=== PATIENT | male | born 1960 | race Caucasian/White ===

== ENCOUNTER 2017-11-07 09:10 | Day surgery (SDC) | payer OTHER ==
[2017-11-07] MEDS: BUPIVACAINE 0.5% 30 ML VIAL INJ
[2017-11-07] MEDS: LIDOCAINE 1%/EPI 30 ML INJ INJ
[2017-11-07 10:33] LABS: ADD MAN DIFF? NO
[2017-11-07 10:38] LABS: BASOPHIL # 0.1 10^3/ul (0.0-0.1); BASOPHILS % 1.1 % (0.0-2.0); EOSINOPHILS # 0.3 10^3/ul (0.0-0.5); EOSINOPHILS % 3.2 % (0.0-7.0); HEMATOCRIT 48.4 % (42.0-52.0); HEMOGLOBIN 16.8 g/dl (14.0-18.0); LYMPHOCYTES # 1.8 10^3/ul (0.8-2.9); LYMPHOCYTES % 22.7 % (15.0-51.0); MEAN CORPUSCULAR HEMOGLOBIN 29.9 pg (29.0-33.0); MEAN CORPUSCULAR HGB CONC 34.7 g/dl (32.0-37.0); MEAN CORPUSCULAR VOLUME 86.1 fl (82.0-101.0); MEAN PLATELET VOLUME 10.5 fl (7.4-10.4); MONOCYTE # 0.7 10^3/ul (0.3-0.9); MONOCYTES % 8.8 % (0.0-11.0); NEUTROPHIL # 5.1 10^3/ul (1.6-7.5); NEUTROPHILS % 63.2 % (39.0-77.0); PLATELET COUNT 272 10^3/UL (140-415); RED BLOOD COUNT 5.62 10^6/ul (4.70-6.10); RED CELL DISTRIBUTION WIDTH 12.1 % (11.5-14.5)
[2017-11-07 10:38] LABS: WHITE BLOOD COUNT 8.1 10^3/ul (4.8-10.8)
[2017-11-07] MEDS: SOD CHLORIDE 0.9% 1,000 ML IV (10:41)
[2017-11-07 10:54] LABS: INR 0.99; PROTIME 13.2 Sec (11.9-14.9)
[2017-11-07 10:55] LABS: PARTIAL THROMBOPLASTIN TIME 34.9 Sec (25.0-35.0)
[2017-11-07 11:00] LABS: ALANINE AMINOTRANSFERASE 42 IU/L (13-69); ALBUMIN 4.1 g/dl (3.3-4.9); ALBUMIN/GLOBULIN RATIO 1.07; ALKALINE PHOSPHATASE 81 IU/L (42-121); ANION GAP 11 (8-16); ASPARTATE AMINO TRANSFERASE 30 IU/L (15-46); BILIRUBIN,INDIRECT 0.8 mg/dl (0-1.1); BILIRUBIN,TOTAL 0.8 mg/dl (0.2-1.3); BLOOD UREA NITROGEN 15 mg/dl (7-20); CALCIUM 9.3 mg/dl (8.4-10.2); CARBON DIOXIDE 31 mmol/L (21-31); CHLORIDE 105 mmol/L (97-110); GLUCOSE 98 mg/dl (70-220); POTASSIUM 4.4 mmol/L (3.5-5.1); SODIUM 143 mmol/L (135-144); TOTAL PROTEIN 7.9 g/dl (6.1-8.1)
[2017-11-07] MEDS ORDERED: CEFAZOLIN 2 GM/50 ML (PMX) 50 ML IVPB (11:30)
[2017-11-07] MEDS ORDERED: BUPIVACAINE 0.5% (SDV) 30 ML INJ (11:47)
[2017-11-07] MEDS ORDERED: LIDOCAINE 1%/EPI 30 ML INJ (11:47)
[2017-11-07] MEDS ORDERED: MIDAZOLAM 1 MG/ML 2 ML INJ (12:09)
[2017-11-07] MEDS ORDERED: PROPOFOL 20 ML (12:09)
[2017-11-07] MEDS ORDERED: LIDOCAINE 2% (SDV) 5 ML INJ (12:09)
[2017-11-07] MEDS ORDERED: FENTAnyl 50 MCG/ML VIAL (12:09)
[2017-11-07] MEDS ORDERED: CEFAZOLIN 1 GM INJ (12:26)
[2017-11-07] MEDS ORDERED: KETOROLAC 30 MG INJ (12:44)
== END 2017-11-07 14:40 | disposition home or self-care (01) ==
LOC: SDS 09:10
DX: L72.11 Pilar cyst (principal)
CPT/HCPCS: 11423; 71045; 80053; 85025; 85610; 85730; 88307; 93005